=== PATIENT | female | born 1990 | race Caucasian/White ===

== ENCOUNTER 2023-06-02 09:06 | Day surgery (SDC) | payer MEDICAID ==
[~2023-06-02] VITALS: Ht 175.3 cm; Wt 109.1 kg
[2023-06-02] VITALS (9 sets, daily range): BP systolic 93–124; BP diastolic 57–75; PULSE 65–73; RESP 14–17; TEMP 97.9; O2SAT 97–100
[2023-06-02] MEDS ORDERED: FERR325T29 PO (09:37)
[2023-06-02] MEDS ORDERED: B12 PO (09:37)
[2023-06-02] MEDS ORDERED: VITA-268 PO (09:37)
[2023-06-02] MEDS ORDERED: CHOL1CAP11 POPLITEAL (09:37)
[2023-06-02 12:22] LABS: GLUCOSE,CSF 56 MG/DL (40-75); TOTAL PROTEIN,CSF 49 MG/DL (15-45)
[2023-06-02 12:24] LABS: APPEARANCE,CSF CLEAR; CSF RBC 1 /CU MM (0); CSF SUPERNATANT COLOR COLORLESS; CSF VOLUME 20 ML; TUBE# COUNTED 3
[2023-06-02 12:25] LABS: LYMPHOCYTES,CSF 93 % (40-80); MONOCYTES,CSF 7 % (15-45)
[2023-06-02 12:27] LABS: CSF WBC CT 6 /CU MM (0-5)
[2023-06-03 11:16] LABS: IMMUNOGLOBULIN G, QN, SERUM 1000 mg/dL (586-1602)
[2023-06-06 19:20] LABS: ANGIOTENSIN CONVERT ENZ, CSF <1.5 U/L (0.0-2.5); MYELIN BASIC PROTEIN, CSF 3.6 ng/mL (0.0-3.7)
[2023-06-07 13:49] LABS: IMMUNOGLOBULIN G, QN CSF 4.4 mg/dL (0.0-6.7)
[2023-06-07 19:16] LABS: VDRL, CSF Non Reactive (Non Rea:<1:1)
[2023-06-08 15:35] LABS: LYME IGG P18 AB Absent (.); LYME IGG P23 AB Absent (.); LYME IGG P28 AB Absent (.); LYME IGG P30 AB Absent (.); LYME IGG P39 AB Absent (.); LYME IGG P41 AB Absent (.); LYME IGG P45 AB Absent (.); LYME IGG P58 AB Absent (.); LYME IGG P66 AB Absent (.); LYME IGG P93 AB Absent (.); LYME IGG WB INTERP Negative (.); LYME IGM P23 AB Absent (.); LYME IGM P39 AB Absent (.); LYME IGM P41 AB Absent (.); LYME IGM WB INTERP Negative (.)
== END 2023-06-02 13:25 | disposition home or self-care (01) ==
LOC: SSTAY O 09:06
PROVIDERS: ATTEND Nurse Practitioner Family
DX: G35 Multiple sclerosis (principal); E53.8 Deficiency of other specified B group vitamins; D64.9 Anemia, unspecified; Z98.890 Other specified postprocedural states; Z79.899 Other long term (current) drug therapy
CPT/HCPCS: 36415; 62328; 82040; 82042; 82164; 82784; 82945; 83873; 83916; 84157; 86592; 86617; 87015; 87070; 87102; 89051; A4620